=== PATIENT | male | born 1970 | race Caucasian/White ===

== ENCOUNTER 2019-07-14 17:31 | Emergency (ER) | payer OTHER ==
[~2019-07-14] VITALS: Ht 170.2 cm; Wt 83.5 kg
[2019-07-14] MEDS ORDERED: CLONAZEPAM 0.50.5 M1 PO (17:50)
[2019-07-14 18:38] LABS: INFLUENZA A ANTIGEN Negative (Negative); INFLUENZA B ANTIGEN Negative (Negative)
[2019-07-14] MEDS ORDERED: MEDROLDOSEPACK PO (18:43)
[2019-07-14] MEDS ORDERED: ZPAK PO (18:43)
[2019-07-14 18:54] VITALS: BP 133/88
== END 2019-07-14 18:56 | disposition home or self-care (01) ==
LOC: M.ERS 17:31
PROVIDERS: Nurse Practitioner Family
DX: J40 Bronchitis, not specified as acute or chronic (principal); F17.210 Nicotine dependence, cigarettes, uncomplicated; Z88.2 Allergy status to sulfonamides; Z88.1 Allergy status to other antibiotic agents